=== PATIENT | male | born 1965 | race Caucasian/White ===

== ENCOUNTER 2024-03-23 08:38 | Outpatient (CLI) | payer MEDICAID, SELFPAY | END 2024-03-23 08:39 | disposition home or self-care (01) | LOC: NFLDREF 03-24 08:17 | PROVIDERS: PCP Family Medicine; Referring Provider Family Medicine; Visit Provider Family Medicine | DX: E03.9 Hypothyroidism, unspecified (principal) | CPT/HCPCS: 84443 ==

== ENCOUNTER 2024-12-17 08:30 | Outpatient (CLI) | payer OTHER, SELFPAY | END 2024-12-17 08:31 | disposition home or self-care (01) | LOC: NFLDREF 12-22 00:42 | PROVIDERS: PCP Family Medicine; Referring Provider Family Medicine; Visit Provider Family Medicine | DX: E03.9 Hypothyroidism, unspecified (principal); Z12.5 Encounter for screening for malignant neoplasm of prostate; Z13.0 Encounter for screening for diseases of the blood and blood-forming organs and certain disorders involving the immune mechanism | CPT/HCPCS: 80053; 80061; 84443; G0103 ==

== ENCOUNTER 2025-06-30 07:58 | Outpatient (CLI) | payer OTHER, SELFPAY | END 2025-06-30 07:59 | disposition home or self-care (01) | LOC: NFLDREF 07-04 16:28 | PROVIDERS: PCP Family Medicine; Referring Provider Family Medicine; Visit Provider Family Medicine | DX: Z00.00 Encounter for general adult medical examination without abnormal findings (principal); E03.9 Hypothyroidism, unspecified; G47.30 Sleep apnea, unspecified; Z12.5 Encounter for screening for malignant neoplasm of prostate | CPT/HCPCS: 80053; 80061; 84443; G0103 ==

== ENCOUNTER 2025-07-05 09:09 | Outpatient (CLI) | payer OTHER, SELFPAY | END 2025-07-05 09:10 | disposition home or self-care (01) | LOC: NFLDREF 07-10 04:28 | PROVIDERS: PCP Family Medicine; Visit Provider Family Medicine | DX: Z67.20 Type B blood, Rh positive (principal) | CPT/HCPCS: 86900; 86901 ==